=== PATIENT | male | born 1960 | race Two or more races ===

== ENCOUNTER 2017-10-31 09:17 | Emergency (ER) | payer MEDICAID ==
[~2017-10-31] VITALS: Ht 180.3 cm; Wt 74.8 kg
[2017-10-31 09:21] VITALS: BP 117/69
== END 2017-10-31 09:56 | disposition home or self-care (01) ==
LOC: ER 09:24
DX: F32.9 Major depressive disorder, single episode, unspecified (principal); Z76.0 Encounter for issue of repeat prescription; E11.9 Type 2 diabetes mellitus without complications; F41.9 Anxiety disorder, unspecified; E78.5 Hyperlipidemia, unspecified; Z79.4 Long term (current) use of insulin
CPT/HCPCS: A4606; Z7610